=== PATIENT | male | born 1960 | race Hispanic/Latino ===

== ENCOUNTER → 2019-10-11 | Day surgery (SDC) | payer OTHER ==
[2019-10-06 16:51] LABS: ANION GAP 12.3 mmol/L (8-16); CALCIUM 9.5 mg/dL (8.4-10.2); CREATININE, SERUM 1.86 mg/dL (0.72-1.25); POTASSIUM 4.3 mmol/L (3.5-5.1)
[~2019-10-11] MED LIST: ASPIRIN81 MG PO; ATORVASTATIN CA20 MG PO; BUPIVACAINE HCL 0.5% INJ 30 ML VIAL INJ ONE; CEFAZOLIN SOD 1 GM/NS 50ML 100 ML IV ONE; DEXAMETHASONE SOD PHOS INJ 4 MG/ML VIAL ONE; ETOMIDATE 2 MG/ML 10 ML INJ IV ONE; FENOFIBRATE145 MG PO; FENTANYL CITRATE/PF 100MCG/2 ML INJ ONE; JANUMET 50-1,01 EACH PO; JARDIANCE25 MG PO; LISINOPRIL-HCT1 EACH PO; MIDAZOLAM HCL 2 MG/2 ML VIAL ONE; NEOSTIGMINE 1 MG/ML 10ML VIAL ONE; OMEGA-31000 MG PO; ONDANSETRON HCL INJ 2MG/ML 2ML 2 MG/ML VIAL ONE; PROPOFOL IV EMULSION 10 MG/ML 20 ML VIAL ONE; SEVOFLURANE INHAL SOLN 250 ML PEN BTL ONE
[2019-10-11 13:41] VITALS: BP 114/87
--- NOTE | 2019-10-11 22:01 | Operative Report ---
DATE OF PROCEDURE: 10/11/2019 SURGEON: Latrice Munoz DPM PREOPERATIVE DIAGNOSES: 1. Left hallux abductovalgus. 2. Left hallux interphalangeals. 3. Hammertoe #2 and #5, left. 4. Tailor's bunion, left. 5. Plantar flexed 2nd metatarsal, left. POSTOPERATIVE DIAGNOSES: 1. Left hallux abductovalgus. 2. Left hallux interphalangeals. 3. Hammertoe #2 and #5, left. 4. Tailor's bunion, left. 5. Plantar flexed 2nd metatarsal, left. PROCEDURES: 1. Double osteotomy, 1st ray, left foot. 2. Mojgan osteotomy, left 2nd. 3. Arthrodesis, PIPJ, left 2nd. 4. Osteotomy, 5th metatarsal, left. PATHOLOGY: None. ANESTHESIA: General anesthetic. HEMOSTASIS: Pneumatic thigh tourniquet. ESTIMATED BLOOD LOSS: Less than 10 mL. MATERIALS: Two cannulated screws from [employer] 2-0 x 16, 2-0 x 18 Snap-off screw from the 2nd metatarsal, 2-0 x 16 Snap-off screw for the 5th metatarsal, 2-0 x 12 and a 10 mm staple lot #[id number], then a Smart toe intramedullary arthrodesis implant, lot #[id number], and a 2 x 4 human allograft. COMPLICATIONS: None. CONDITION: Stable. HEMOSTASIS: Pneumatic thigh tourniquet at 250 mmHg. PROCEDURE IN DETAIL: Under mild sedation, the patient was brought to the operating room, placed on the operating table in supine position. Following IV sedation, anesthesia was obtained with a general anesthetic. At this point, the left foot was scrubbed, prepped, and draped in the usual aseptic manner. Pneumatic tourniquet was inflated and the leg was lowered to the table. Attention was directed to the 1st metatarsal where a linear incision was made overlying the 1st metatarsal joint down distally to the phalanx. The incision was deepened via sharp and blunt dissection incision was made down to the level of the capsule. Linear capsulotomy was then performed. There was noted to be a large exostosis dorsally and medially utilizing oscillating saw. They were removed. A McGlamry elevator was then used to free up the tissue at the 1st metatarsal and the lateral contractures. The lateral release was performed and noted to let the sesamoids free into more anatomical position. An osteotomy was then performed through and through 60 degrees. The head of the 1st metatarsal was then went to a more lateral position helping to close the intermetatarsal angle. Attention directed to the phalanx where an Floyd osteotomy was then performed in a standard fashion. The Floyd osteotomy was fixated with metatarsal was fixated utilizing 2 screws. There was noted to be adequate compression clinically and with the use of intraoperative fluoroscopy. Both the areas were then flushed with copious amount of normal sterile saline solution. Attention was directed to the 2nd metatarsal with linear incision was made overlying the 2nd metatarsophalangeal joint. Incision was deepened down to the level of the metatarsal. The attachments were then released. Utilizing an oscillating saw, Mojgan osteotomy dorsiflexor osteotomy was then performed. It was then fixated utilizing a snap-off screw. There was noted to be adequate compression clinically with the use of intraoperative fluoroscopy. Attention was directed to the PIPJ where a linear incision was made. Extensor tendon was then tenotomized the phalanx. The joint was then made ready for arthrodesis. That was then fixated utilizing a Smart toe. There was noted to be adequate compression clinically with the use of intraoperative fluoroscopy. Attention was directed to the 5th metatarsophalangeal joint where the incision was made. The incision was deepened down to the level of the 5th metatarsal. Utilizing an oscillating saw, an osteotomy was then performed dorsiflexory to release the contracture right at the joint. It was then fixated utilizing a snap-off screw. There was noted to be adequate compression clinically and with the use of intraoperative fluoroscopy. The flexor tendon was then tenotomized at the 5th to release the contracture at the PIPJ and at the 3rd also. All areas were then flushed with copious amount of normal sterile saline solution. The areas were then closed, closing the deepest layer with 2-0 Vicryl, then 3-0 Vicryl. Human allograft was then inserted right into the subcutaneous layer, noted to prevent adhesions and to prevent nerve entrapment. The skin was then closed with 4-0 nylon. Clean dressing was applied consisting of Adaptic ointment, 4x4s, Webril, posterior splint was applied, and was secured utilizing an José Miguel bandage. The patient tolerated the procedure and anesthesia well without complications, was transported to recovery room with vital signs stable and vascular status intact. The patient will be discharged home when he meets criteria. He was given instructions to be strictly nonweightbearing to ice and elevate the foot while at rest. Follow up with me in the office and to call the office if any questions, concerns, or new problems arise. MARLO Valdivia/PAIGEL /[id number]
== END | disposition home or self-care (01) ==
LOC: OR 09:01
PROVIDERS: ATTEND Podiatrist Foot & Ankle Surgery
DX: M21.622 Bunionette of left foot (principal); M20.42 Other hammer toe(s) (acquired), left foot; M20.12 Hallux valgus (acquired), left foot; M20.5X2 Other deformities of toe(s) (acquired), left foot; M24.575 Contracture, left foot; G47.33 Obstructive sleep apnea (adult) (pediatric); E11.22 Type 2 diabetes mellitus with diabetic chronic kidney disease; I12.9 Hypertensive chronic kidney disease with stage 1 through stage 4 chronic kidney disease, or unspecified chronic kidney disease; N18.9 Chronic kidney disease, unspecified; Z01.810 Encounter for preprocedural cardiovascular examination; Z01.812 Encounter for preprocedural laboratory examination; Z11.59 Encounter for screening for other viral diseases; Z79.82 Long term (current) use of aspirin; Z86.73 Personal history of transient ischemic attack (TIA), and cerebral infarction without residual deficits
CPT/HCPCS: 28113; 28285; 28299; 28308; 36415 ×2; 80048; 82948; 93005; C1713 ×7; J0690; J1100; J2250; J2405; J2704; J2710; J3010; Q4150; U0002; 76000